=== PATIENT | female | born 1945 | race Two or more races ===

== ENCOUNTER 2021-12-30 10:26 | Outpatient (REF) | payer OTHER, SELFPAY ==
[2021-12-30 13:39] LABS: Erythrocyte Sedimentation Rate 11 MM/HR (0-20)
== END 2021-12-30 10:27 | disposition home or self-care (01) ==
LOC: HO.LAB 10:26
PROVIDERS: PCP Internal Medicine; Visit Provider Internal Medicine Rheumatology
DX: M79.7 Fibromyalgia (principal); M47.816 Spondylosis without myelopathy or radiculopathy, lumbar region; Z87.39 Personal history of other diseases of the musculoskeletal system and connective tissue
CPT/HCPCS: 36415; 85652; 86140